=== PATIENT | female | born 1965 | race Caucasian/White ===

== ENCOUNTER 2017-08-17 07:33 | Outpatient (CLI) | payer BC ==
--- NOTE | 2017-08-17 09:23 | MMO ---
BILATERAL MAMMOGRAMS: Comparison is made to an outside mammogram from February 2015. Interpreted with computer-aided detection. Scattered fibroglandular densities. No evidence of mass or distortion. No suspicious calcification . No interval change. Recommend 1-year followup. IMPRESSION: BIRADS 1: Negative Routine annual screening mammography (for women over age 40) POS: [facility]
== END 2017-08-17 07:34 | disposition home or self-care (01) ==
LOC: SCSMAMMO 07:33
PROVIDERS: ATTEND Student in an Organized Health Care Education/Training Program
DX: Z12.31 Encounter for screening mammogram for malignant neoplasm of breast (principal)
CPT/HCPCS: 77067; G0202

== ENCOUNTER 2019-01-15 15:07 | Outpatient (CLI) | payer BC ==
--- NOTE | 2019-01-15 16:26 | ULT ---
SOFT TISSUE ULTRASOUND: HISTORY: The patient was kicked in the right cole by a horse three weeks ago. Residual bump with bruise. COMPARISON: None. CORRELATION: Right lower extremity radiograph from 01/09/2019. FINDINGS: Targeted sonographic imaging in the region of concern demonstrates soft tissue swelling and edema. T here is no evidence of a drainable abscess. There is a mixed echotexture area measuring 0.5 x 0.8 cm , which may represent a small posttraumatic fluid collection/resolving hematoma. IMPRESSION: Soft tissue swelling with probable resolving fluid collection/hematoma. The lesion is too small to d rain percutaneously. POS: [facility]
== END 2019-01-15 15:08 | disposition home or self-care (01) ==
LOC: SCSULT 15:07
PROVIDERS: ATTEND Family Medicine
DX: S89.91XD Unspecified injury of right lower leg, subsequent encounter (principal); M79.89 Other specified soft tissue disorders; L98.9 Disorder of the skin and subcutaneous tissue, unspecified
CPT/HCPCS: 76999

== ENCOUNTER 2019-01-18 13:26 | Outpatient (CLI) | payer BC ==
--- NOTE | 2019-01-22 13:26 | MMO ---
Bilateral MAMMO Bilat Screen [facility]. CLINICAL HISTORY: Patient is 53 years old and is seen for screening. The patient has no family history of breast cancer. The patient has no personal history of cancer. VIEWS: The views performed were: bilateral craniocaudal and bilateral mediolateral oblique. FILMS COMPARED: The present examination has been compared to prior imaging studies performed at [facility] on 08/17/2017, and at [facility] on 03/03/2015. This study has been interpreted with the assistance of computer-aided detection. MAMMOGRAM FINDINGS: There are scattered fibroglandular densities. There are no suspicious masses, suspicious calcifications, or new areas of architectural distortion. IMPRESSION: THERE IS NO MAMMOGRAPHIC EVIDENCE OF MALIGNANCY. A ROUTINE FOLLOW-UP MAMMOGRAM IN 1 YEAR IS RECOMMENDED. ACR BI-RADS Category 1 - Negative MAMMOGRAPHY NOTE: 1. A negative mammogram report should not delay a biopsy if a dominant of clinically suspicious mass is present. 2. Approximately 10% to 15% of breast cancers are not detected by mammography. 3. Adenosis and dense breasts may obscure an underlying neoplasm.
== END 2019-01-18 13:27 | disposition home or self-care (01) ==
LOC: SCSMAMMO 13:26
PROVIDERS: ATTEND Family Medicine
DX: Z12.31 Encounter for screening mammogram for malignant neoplasm of breast (principal)
CPT/HCPCS: 77067